=== PATIENT | male | born 1960 | race Caucasian/White ===

== ENCOUNTER 2017-06-11 13:27 | Inpatient (IN) | payer BC ==
[~2017-06-11] VITALS: Ht 172.7 cm; Wt 113.4 kg
[~2017-06-11 13:27] MED LIST: NOHOMEMEDICATIONS; NORCO 7.5-3251 EACH; PEPCID AC20 M1 PO
[2017-06-11 13:33] VITALS: BP 137/69
[2017-06-11] MEDS ORDERED: LISINOPRIL5 MG PO (13:35)
[2017-06-11 13:49] LABS: ABSOLUTE EOSINOPHILS 0.3 thou/uL (0.0-0.7); ABSOLUTE LYMPHOCYTES 2.5 thou/uL (0.8-5.3); ABSOLUTE MONOCYTES 0.8 thou/uL (0.0-1.2); ABSOLUTE NEUTROPHILS 7.9 thou/uL (1.6-8.1); BASOPHILS 0.2 %; EOSINOPHILS 2.8 %; HEMATOCRIT 40.2 % (42.0-52.0); HEMOGLOBIN 13.6 gm/dL (14.0-18.0); LYMPHOCYTES 21.5 %; MCH 29.8 pg (26.0-34.0); MCHC 33.8 g/dL (28.0-37.0); MCV 88.3 fL (80.0-100.0); MONOCYTES 7.1 %; MPV 8.2 fl. (7.2-11.1); NUCLEATED RBCS 0 /100WBC; PLATELET COUNT* 270 thou/uL (150-400); POLYS 68.4 %; RBC 4.56 mil/uL (4.50-6.00); RDW-CV 13.9 % (10.5-14.5); WBC 11.6 thou/uL (4.0-11.0)
[2017-06-11] MEDS ORDERED: TASIGNA200 MG PO (13:50)
[2017-06-11 13:58] LABS: ANION GAP 9 mmol/L (7-16); BUN 12 mg/dL (7-18); CALCIUM 8.9 mg/dL (8.5-10.1); CHLORIDE 103 mmol/L (98-107); CO2 26 mmol/L (21-32); GLUCOSE 100 mg/dL (70-99); POTASSIUM 3.7 mmol/L (3.5-5.1); SODIUM 138 mmol/L (136-145)
[2017-06-11 14:09] LABS: ALKALINE PHOSPHATASE 93 U/L (46-116); LIPASE 977 U/L (73-393); MAGNESIUM 2.1 mg/dL (1.8-2.4); NT-PRO BRAIN NAT PEPTIDE 134 pg/mL (<300); SGOT 18 U/L (15-37); SGPT 43 U/L (30-65); TOTAL BILIRUBIN 0.9 mg/dL (<0.1-1.0); TOTAL PROTEIN 7.5 g/dL (6.4-8.2); TROPONIN-I LEVEL <0.06 ng/mL (<0.06)
[2017-06-11 17:15] VITALS: BP 135/80
[2017-06-11 17:16] VITALS: BP 123/69
[2017-06-11 19:45] VITALS: BP 118/68
[2017-06-12] VITALS (7 sets, daily range): BP systolic 101–141; BP diastolic 45–75
[2017-06-12 09:43] LABS: ANION GAP 12 mmol/L (7-16); BUN 13 mg/dL (7-18); CALCIUM 8.6 mg/dL (8.5-10.1); CHLORIDE 105 mmol/L (98-107); CHOLESTEROL 171 mg/dL (<200); CO2 23 mmol/L (21-32); CREATININE 1.1 mg/dL (0.6-1.3); GLUCOSE 103 mg/dL (70-99); HDL CHOLESTEROL 55 mg/dL (>40); LDL CHOLESTEROL 96 mg/dL (<100); MAGNESIUM 2.5 mg/dL (1.8-2.4); POTASSIUM 4.3 mmol/L (3.5-5.1); SERUM ASSESSMENT Clear; SODIUM 140 mmol/L (136-145); TC:HDL 3.1 Ratio (Not establshd); TRIGLYCERIDE 102 mg/dL (<150); VLDL 20 mg/dL (<40)
--- NOTE | 2017-06-12 10:57 | EKG ---
[place] [address] ELECTROCARDIOGRAM REPORT Name: RAN MURPHY JR Room: [address] ADM IN M.R.#: [id number] Admission: 06/11/17 Attend Phys: Ran White MD Discharge: Date of : 58 Report #: [id number] THIS REPORT FOR: //name// [facility] ED Test Date: 2017-06-11 Test Time: 13:31:54 Pat Name: RAN MURPHY Department: Room: [facility] Gender: M Graves Registration Specialist: MS : 1960 Requested By: Pradeep Forrest Order Number: [id number] MD: Barrington White Measurements Intervals [place] Rate: 94 P: 50 MT: 183 QRS: 11 QRSD: 96 T: 34 QT: 377 QTc: 472 Interpretive Statements Sinus rhythm Probable left atrial enlargement Low voltage, precordial leads Compared to ECG 03/09/2012 05:08:12 no change Electronically Signed On 06-12-2017 10:57:29 NPS by Barrington White [email or web address] <ELECTRONICALLY SIGNED> By: Barrington White MD, [facility] 06/12/17 1057 133 30 Barrington White MD, [facility] /EPI
--- NOTE | 2017-06-12 11:11 | EKG ---
[place] [address] ELECTROCARDIOGRAM REPORT Name: RAN UMRPHY JR Room: [address] ADM IN M.R.#: [id number] Admission: 06/11/17 Attend Phys: Ran White MD Discharge: Date of : 58 Report #: [id number] THIS REPORT FOR: //name// [facility] Test Date: 2017-06-12 Test Time: 10:54:19 Pat Name: RAN MURPHY Department: Room: [facility] Gender: M Gastroenterology Nurse: 26 : 1960 Requested By: Ran White Order Number: [id number] Conor MD: Barrington White Measurements Intervals [place] Rate: 78 P: 26 OK: 173 QRS: 13 QRSD: 91 T: 23 QT: 382 QTc: 436 Interpretive Statements Sinus rhythm Abnormal R-wave progression, early transition Compared to ECG 06/11/2017 13:31:54 No significant changes Electronically Signed On 06-12-2017 11:10:46 [employer] by Barrington White [email or web address] <ELECTRONICALLY SIGNED> By: Barrington White MD, [facility] 06/12/17 1110 1054 1054 Barrington White MD, FACC /EPI
--- NOTE | 2017-06-12 16:15 | 2DMMODE ---
[place] [address] 2 D/M-MODE ECHOCARDIOGRAM Name: RNA MURPHY JR Room: [address] IN [facility]#: [id number] Admission: 06/11/17 Attend Phys: Ran White, Discharge: Date of : 58 Date of Service: 06/12/17 1615 Report #: [id number] THIS REPORT FOR: //name// APPROVED REPORT Study performed: 06/12/2017 10:33:36 EXAM: Comprehensive 2D, Doppler, and color-flow Echocardiogram Patient Location: In-Patient Room #: 220 Status: routine BSA: 2.25 HR: 76 bpm BP: 132/74 mmHg Rhythm: NSR Other Information Study Quality: Good Indications Dyspnea 2D Dimensions IVSd: 9.91 (7-11mm) LVOT Diam: 22.82 (18-24mm) LVDd: 44.32 mm PWd: 11.15 (7-11mm) Ascending Ao: 31.47 (22-36mm) LVDs: 21.19 (25-40mm) Aortic Root: 32.45 mm Volumes Left Atrial Volume (Systole) LA ESV Index: 20.40 mL/m2 Aortic Valve AoV Peak Elfego.: 1.34 m/s AO Peak Gr.: 7.23 mmHg LVOT Max P.28 mmHg AO Mean Gr.: 3.62 mmHg LVOT Mean P.37 mmHg LVOT Max V: 1.15 m/s AO V2 VTI: 28.08 cm LVOT Mean V: 0.70 m/s MASON (VTI): 3.19 cm2 LVOT V1 VTI: 21.86 cm Mitral Valve E/A Ratio: 1.08 MV Decel. Time: 176.12 ms MV E Max Elfego.: 0.98 m/[place] [address] 2 D/M-MODE ECHOCARDIOGRAM Name: RAN MURPHY JR Room: [address] IN ..#: [id number] Admission: 06/11/17 Attend Phys: Ran White, Discharge: Date of : 58 Date of Service: 06/12/17 1615 Report #: [id number] PHT: 51.07 ms MVA (PHT): 4.31 cm2 TDI E/Lateral E': 6.53 E/Medial E': 8.91 Medial E' Elfego.: 0.11 m/s Lateral E' Elfego.: 0.15 m/s Pulmonary Valve PV Peak Elfego.: 1.33 m/s PV Peak Gr.: 7.10 mmHg Tricuspid Valve TR Peak Gr.: 23.07 mmHg RVSP: 28.00 mmHg Left Ventricle The left ventricle is normal size. There is normal LV segmental wall motion. Mild concentric left ventricular hypertrophy. Left ventricular systolic function is normal. The left ventricular ejection fraction is within the normal range. LVEF is 60-65%. The left ventricular diastolic function is normal. Right Ventricle The right ventricle is normal size. The right ventricular systolic function is normal. Atria The left atrium size is normal. The right atrium size is normal. Aortic Valve The aortic valve is normal in structure. No aortic regurgitation is present. There is no aortic valvular stenosis. Mitral Valve The mitral valve is normal in structure. Trace mitral regurgitation. No evidence of mitral valve stenosis. Tricuspid Valve The tricuspid valve is normal in structure. Trace tricuspid regurgitation. The RVSP is ___28____ mmHg. Pulmonic Valve The pulmonary valve is normal in structure. There is no pulmonic valvular regurgitation[place] [address] 2 D/M-MODE ECHOCARDIOGRAM Name: RAN MURPHY JR Room: [address] IN [facility]#: [id number] Admission: 06/11/17 Attend Phys: Ran White, Discharge: Date of : 58 Date of Service: 06/12/17 1615 Report #: [id number] The aortic root is normal in size. IVC is normal in size and collapses with >50% inspiration Pericardium There is no pericardial effusion. <Conclusion> Mild concentric left ventricular hypertrophy. LVEF is 60-65%. <ELECTRONICALLY SIGNED> By: Barrington White MD, FACC 06/12/17 1615 14 14 Barrington White MD, FACC /INF
[2017-06-13 04:23] VITALS: BP 139/77
[2017-06-13 09:30] VITALS: BP 143/79
[2017-06-13 12:00] VITALS: BP 140/77
[2017-06-13 16:12] VITALS: BP 140/77
--- NOTE | 2017-06-13 17:17 | CON ---
[address] [address] CONSULTATION Name: RAN MURPHY JR Room: [address] IN ..#: [id number] Admission: 06/11/17 Attend Phys: Ran White MD Discharge: 06/13/17 Date of : 58 Report #: [id number] THIS REPORT FOR: //name// CC: Carlos Hull DO Ran Ruggiero Adalangie DATE OF SERVICE: 06/12/2017 PRIMARY CARE PHYSICIAN: Dr. Hull. HISTORY OF PRESENT ILLNESS: The patient is a 57-year-old white male who I was asked to see in hospital today after he complained of chest pain. The patient has no previous history of heart disease. He apparently had a stress test years ago. A year ago, he was noted to have an elevated white blood cell count and was diagnosed with CML. He is receiving oral chemotherapy. He was doing well until a couple days ago, was at home, felt a pressure in his epigastric area. Yesterday, he ate breakfast and then went to work. Again, felt an epigastric discomfort. There is no radiation of the pain. He felt somewhat diaphoretic but no shortness of breath, nausea. He denies recent fever, cough, blood in stool. Denied the pain being related to swallowing. He had no trauma to his chest. Denied any rash. The pressure lasted couple of hours. He drove himself to the Emergency Room and was admitted. He does note exertional dyspnea, but no edema. He has had no syncope. He does note occasional episodes where his heart will pound. PAST MEDICAL HISTORY: Significant for appendectomy, prostate surgery, cholecystectomy, tonsillectomy. He has a history of hypertension, no history of diabetes, hyperlipidemia. MEDICATIONS: Include lisinopril. He is on his chemotherapy drug. ALLERGIES: He has an allergy to PENICILLIN. FAMILY HISTORY: Negative for heart disease. SOCIAL HISTORY: He is . He and his live in [place]. 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 He stays active, bowling, no smoking or alcohol abuse. REVIEW OF SYSTEMS: He has a history of sleep apnea, uses CPAP, recently complained of fatigue. He has had no history of stroke, asthma, peptic ulcer disease, liver disease, kidney disease, psychiatric illness. Does wear glasses. PHYSICAL EXAMINATION: GENERAL: Revealed a middle-aged male lying in bed, [place] [address] CONSULTATION Name: RAN MURPHY JR Room: [address]#: [id number] Admission: 06/11/17 Attend Phys: Ran White MD Discharge: 06/13/17 Date of : 58 Report #: [id number] VITAL SIGNS: He had a blood pressure of 130/70, his pulse was 80. He is afebrile. HEENT: He is anicteric. Conjunctivae pink. Mucous members moist. NECK: Veins do not appear distended. CHEST: Clear to auscultation. CARDIOVASCULAR: Regular rate and rhythm. ABDOMEN: Obese, soft, nontender. EXTREMITIES: Had no edema. Dorsalis pedis pulse 2+ bilaterally. SKIN: Warm, dry. NEUROLOGIC: Nonfocal. LYMPH: No adenopathy. MUSCULOSKELETAL: No joint effusions. RADIOLOGICAL DATA: ECG shows a sinus rhythm. There is no significant ST or T-wave change. His x-rays in the emergency room, he had a portable chest x-ray that showed normal heart size and clear lung cevallos. CT scan of the abdomen for the epigastric pain yesterday showed stranding around the pancreas, left inguinal hernia, fatty liver. LABORATORY DATA: Creatinine 1.1, glucose 103. Lipase elevated at 977. Troponins all 0.06. White blood cell count 11.6, hemoglobin 13.6, platelet count 270,000. IMPRESSION AND RECOMMENDATIONS: 1. Epigastric pain. Doubt cardiac. Recommend no cardiac evaluation. Suspect pancreatitis. 2. Hypertension. The patient is on an MAGALY inhibitor. 3. History of chronic myelogenous leukemia. The patient receiving chemotherapy. 4. Sleep apnea. <ELECTRONICALLY SIGNED> By: Barrington White MD, FACC 06/13/17 1717 0959 1850Dajohn White MD, FACC /nt
--- NOTE | 2017-06-14 16:13 | CON ---
[address] [address] CONSULTATION Name: RAN MURPHY JR Room: [address] IN .R.#: [id number] Admission: 06/11/17 Attend Phys: Ran White MD Discharge: 06/13/17 Date of : 58 Report #: [id number] THIS REPORT FOR: //name// CC: Carlos Brandon DICTATED BY: Ambika Tubbs [facility] DATE OF SERVICE: 06/12/2017 PRIMARY CARE PHYSICIAN: Carlos Hull DO Please note at the time of this dictation, the patient was seen and physically examined by myself. REASON FOR CONSULTATION: Abdominal pain. HISTORY OF PRESENT ILLNESS: This is a 57-year-old male presented to the Emergency Room with chief complaint of nonradiating midsternal chest pain that was waxing and waning throughout the night. He described this pain as a pressure. He does points to it there in the epigastric just at the xiphoid process. He states it did make mildly short of breath. He denied any nausea, vomiting or any diaphoresis. He does not take any NSAIDs on a regular basis. He only takes Tylenol as needed. The patient recently was diagnosed with CML and was started on Tasigna which he started on and then his pain started on Monday, which side effect is pancreatitis. He has not had any further of this medicine since Nikita morning. ALLERGIES: PENICILLIN. MEDICATIONS: From home include Tasigna and Zestril, which he has stopped the Tasigna at this time. FAMILY HISTORY: Noncontributory. SOCIAL HISTORY: Denies any alcohol, tobacco or illegal drug use. REVIEW OF SYSTEMS: Twelve-point review of systems is essentially negative except what is mentioned in the HPI. PHYSICAL EXAMINATION: VITAL SIGNS: Temperature 36.6, pulse 84, respirations 18, blood pressure 141/75. HEART: [place] [address] CONSULTATION Name: RAN MURPHY JR Room: [address] IN [facility].#: [id number] Admission: 06/11/17 Attend Phys: Ran White MD Discharge: 06/13/17 Date of : 58 Report #: [id number] LUNGS: Clear. ABDOMEN: Soft, positive bowel sounds in all 4 quadrants with no masses or tenderness noted and unable to reproduce any of the discomfort. LABORATORY DATA: Hemoglobin 13.6, hematocrit 40.2, white count is 11.6, platelets 270. Sodium 140, potassium 4.3, chloride 105, CO2 of 23, BUN is 13, creatinine is 1.1, GFR 69, and glucose is 103. His triglycerides and cholesterol are completely normal and lipase was mildly elevated at 977. CT showed very minimal stranding at the tail of the pancreas and some hepatic steatosis. IMPRESSION: 1. Abdominal pain, epigastric, completely resolved. 2. Pancreatitis noted on CT with mild elevation of lipase, likely related to medication. 3. Chronic myeloid leukemia recently started Tasigna for his chronic myeloid leukemia. PLAN: 1. Increase his fluids to 150 an hour. 2. Clear liquid diet. 3. We will await and assess his response to the above. 4. We will consult his oncologist, Dr. Bahman Shen for further recommendations regarding his medication for his CML. Thank you for allowing us to participate in this patient's care. Please do not hesitate to call with any questions in regard to this consult. I have personally seen and examined the patient and reviewed labs and imaging. The patient with recent diagnosis of CML, who has been placed on Tasigna. His last dose was Monday a.m. The patient had developed nausea and epigastric pain. This was consistent with diagnosis of pancreatitis as he had some stranding in the tail of the pancreas and his lipase was near 1000. He is currently tolerating liquid diet and denies any nausea. He reports that Tylenol controls his pain. Oncology, Dr. Ruggiero had seen him and the plan is to check Tasigna to another chemotherapeutic agent. This will occur as outpatient. We will follow up his lipase tomorrow and it is improved, we will advance his diet to low fat. Meanwhile, we will up his fluids to 150 mL an hour. <ELECTRONICALLY SIGNED> By: Antonio Johnson MD 06/14/17 1613 1152 [id number] Johnson MD /nt
--- NOTE | 2017-06-14 16:13 | CON ---
[address] [address] CONSULTATION Name: RAN MURPHY JR Room: [address] IN M.R.#: [id number] Admission: 06/11/17 Attend Phys: Ran White MD Discharge: 06/13/17 Date of : 58 Report #: [id number] THIS REPORT FOR: //name// CC: Carlos Shen DATE OF SERVICE: 06/12/2017 ADDENDUM Consult # is [id number] I have personally seen and examined the patient and reviewed labs and imaging. The patient with recent diagnosis of CML, who has been placed on Tasigna. His last dose was Monday a.m. The patient had developed nausea and epigastric pain. This was consistent with diagnosis of pancreatitis as he had some stranding in the tail of the pancreas and his lipase was near 1000. He is currently tolerating liquid diet and denies any nausea. He reports that Tylenol controls his pain. Oncology, Dr. Ruggiero had seen him and the plan is to check Tasigna to another chemotherapeutic agent. This will occur as outpatient. We will follow up his lipase tomorrow and it is improved, we will advance his diet to low fat. Meanwhile, we will up his fluids to 150 mL an hour. <ELECTRONICALLY SIGNED> By: Antonio Johnson MD 06/14/17 1613 1717 0609Antonio Johnson MD /alena
--- NOTE | 2017-07-05 12:06 | CON ---
[address] [address] CONSULTATION Name: RAN MURPHY JR Room: [address] IN M.R.#: [id number] Admission: 06/11/17 Attend Phys: Ran White MD Discharge: 06/13/17 Date of : 58 Report #: [id number] THIS REPORT FOR: //name// CC: Carlos Shen DATE OF SERVICE: 06/12/2017 NEW PATIENT CONSULTATIVE SUMMARY REASON FOR CONSULTATION: Possible reaction to CML treatment. HISTORY OF PRESENT ILLNESS: The patient is a pleasant 57-year-old male who has a history of chronic myelogenous leukemia. The patient had an incomplete response recently to imatinib and was recently started on second line treatment with nilotinib. The patient started taking nilotinib approximately one week ago. The patient started having abdominal discomfort after initiation of nilotinib and came to the Emergency Room yesterday at [facility]. The patient had initial evaluation with CBC and CMP. The patient had normal cardiac enzymes including troponin 1. His chemistries were unremarkable. CT scan of the abdomen done for further evaluation showed minimal fat stranding surrounding the pancreatic tail, raising the possibility of early pancreatitis. No lymphadenopathy or hepatosplenomegaly was seen otherwise. The patient's CBC showed borderline elevation of WBC count of 11.6 with differential being normal. The patient's lipase level when checked was 977. The patient was admitted for further evaluation and management. The patient is being managed by liquid diet and IV fluids. The patient did have a bout of diarrhea today. He, otherwise, feels better than yesterday and has less abdominal discomfort. He denies having any headaches, dizziness, nausea, vomiting, constipation, diarrhea, chest pain, palpitations or other significant symptoms at this time. PAST MEDICAL HISTORY: 1. CML. 2. Anxiety. 3. Obesity. 4. Hypertension. 5. Pancreatitis. PAST SURGICAL HISTORY: 1. Appendectomy. 2. T and A. 3. Prostate biopsy. 4. [place] [address] CONSULTATION Name: RAN MURPHY JR Room: [address]#: [id number] Admission: 06/11/17 Attend Phys: Ran White MD Discharge: 06/13/17 Date of : 58 Report #: [id number] FAMILY HISTORY: No significant family history of cancers or other hematologic disorders. PERSONAL HISTORY: No history of smoking or significant alcohol use. ALLERGIES: PENICILLIN. CURRENT MEDICATIONS: 1. Lisinopril 5 mg p.o. daily. 2. Docusate 100 mg p.o. daily. 3. Aspirin 325 mg p.o. at bedtime. 4. Fentanyl 50 mcg q. 2 hours IV push as needed. 5. IV hydration with sodium chloride. 6. K-Phos and K-Dur as needed IV. 7. Zofran 4 mg IV push q. 4 hours as needed. 8. Melatonin 10 mg p.o. at bedtime as needed. 9. Magnesium oxide 400 mg p.o. q.i.d. as needed. 10. Milk of magnesia 10 mL p.o. daily as needed. 11. Diphenhydramine 25 mg p.o. q. 6 hours as needed. 12. Bisacodyl 10 mg p.o. daily as needed. 13. Mylanta 30 mL p.o. q. 4 hours as needed. 14. Tylenol 650 mg p.o. q. 4 hours as needed. REVIEW OF SYSTEMS: A 13-point review of systems were obtained, which were negative for any findings, except for those discussed in the HPI. PHYSICAL EXAMINATION: VITAL SIGNS: Temperature today was 36.7 degrees centigrade, pulse was 79 beats per minute, respiratory rate was 12 breaths per minute and blood pressure was 116/57 mmHg. GENERAL: Awake, alert, oriented x 3, in no apparent distress. HEENT: EOMI/PERRL. LYMPHATICS: No lymphadenopathy in the neck or supraclavicular areas. CHEST: Clear bilaterally, with no added sounds. CARDIOVASCULAR: Regular rate and rhythm, without any murmurs. ABDOMEN: Soft. Bowel sounds positive. MUSCULOSKELETAL: No significant arthropathy, gait not assessed. NEUROLOGIC: No evidence of any focal neurological deficit. INTEGUMENTARY: No evidence of rashes or other skin changes. ASSESSMENT AND PLAN: The patient is a pleasant 57-year-old male with a history of chronic myelogenous leukemia, for which he recently started second-line medication, nilotinib. The patient was admitted with clinical diagnosis of pancreatitis with elevated lipase level and early signs of pancreatitis on CT scan of the abdomen. [address] [address] CONSULTATION Name: RAN MURPHY JR Room: [address] IN M..#: [id number] Admission: 06/11/17 Attend Phys: Ran White MD Discharge: 06/13/17 Date of : 58 Report #: [id number] I will agree with holding his nilotinib at this time as it could have caused pancreatitis as a reaction. I discussed with the patient the option of alternative medicine, named dasatinib, which we can consider after his pancreatitis episode is resolved. I will plan to see the patient back in 1-2 days after discharge from the hospital in our clinic to discuss initiation of dasatinib or bridging him with Gleevec at that time. Plan was discussed with the patient in detail and all of his questions answered to his satisfaction. I would also recommend continuation of his treatment for pancreatitis. Thank you for allowing us to participate in the care of this pleasant patient. <ELECTRONICALLY SIGNED> By: Bahman Shen MD 07/05/17 1206 1556 [id number] Shen MD /nt
== END 2017-06-13 16:50 | disposition home or self-care (01) | DRG 439 ==
LOC: M.ERS 13:27 → M.2W 14:35 → M.TBA-ER 14:35 → M.2W 17:16
PROVIDERS: Emergency Medicine Emergency Medical Services; ADMIT Internal Medicine
DX: K85.30 Drug induced acute pancreatitis without necrosis or infection (principal); C92.10 Chronic myeloid leukemia, BCR/ABL-positive, not having achieved remission; I10 Essential (primary) hypertension; G47.30 Sleep apnea, unspecified; F41.9 Anxiety disorder, unspecified; E66.9 Obesity, unspecified; Z90.49 Acquired absence of other specified parts of digestive tract; Z85.46 Personal history of malignant neoplasm of prostate; Z88.0 Allergy status to penicillin; Z68.38 Body mass index [BMI] 38.0-38.9, adult; T50.995A Adverse effect of other drugs, medicaments and biological substances, initial encounter; Y92.89 Other specified places as the place of occurrence of the external cause

== ENCOUNTER 2017-11-04 18:35 | Emergency (ER) | payer BC ==
[~2017-11-04] VITALS: Ht 172.7 cm; Wt 111.6 kg
[~2017-11-04 18:35] MED LIST changes: +LISINOPRIL5 MG PO; +TASIGNA200 MG PO
[2017-11-04] MEDS ORDERED: SPRYCEL100 MG PO (18:58)
[2017-11-04] MEDS ORDERED: APAP650 PO (18:59)
[2017-11-04] MEDS ORDERED: CYCLOBENZAPRINE5 MG PO (18:59)
[2017-11-04 19:17] LABS: URINE BILIRUBIN NEGATIVE (Negative); URINE BLOOD NEGATIVE (Negative); URINE CLARITY CLEAR; URINE COLOR YELLOW; URINE GLUCOSE-RANDOM NEGATIVE (Negative); URINE KETONES NEGATIVE (Negative); URINE LEUKOCYTES-REFLEX NEGATIVE (Negative); URINE NITRITE-REFLEX NEGATIVE (Negative); URINE PROTEIN NEGATIVE (Negative); URINE UROBILINOGEN 0.2 E.U./dl (0.2-1.0)
[2017-11-04 19:29] LABS: ABSOLUTE EOSINOPHILS 0.5 thou/uL (0.0-0.7); ABSOLUTE LYMPHOCYTES 3.2 thou/uL (0.8-5.3); ABSOLUTE MONOCYTES 0.9 thou/uL (0.0-1.2); BASOPHILS 0.2 %; EOSINOPHILS 4.6 %; HEMATOCRIT 40.4 % (42.0-52.0); HEMOGLOBIN 13.4 gm/dL (14.0-18.0); LYMPHOCYTES 30.4 %; MCH 28.6 pg (26.0-34.0); MCHC 33.2 g/dL (28.0-37.0); MCV 86.2 fL (80.0-100.0); MONOCYTES 8.1 %; MPV 7.8 fl. (7.2-11.1); NUCLEATED RBCS 0 /100WBC; PLATELET COUNT* 320 thou/uL (150-400); POLYS 56.7 %; RBC 4.69 mil/uL (4.50-6.00); RDW-CV 13.8 % (10.5-14.5); WBC 10.7 thou/uL (4.0-11.0)
[2017-11-04 19:33] LABS: POTASSIUM 4.4 mmol/L (3.5-5.1)
[2017-11-04 19:38] LABS: ALBUMIN 3.7 g/dL (3.4-5.0); TOTAL BILIRUBIN 0.3 mg/dL (<0.1-1.0); TOTAL PROTEIN 7.5 g/dL (6.4-8.2)
[2017-11-04] MEDS ORDERED: HYDROCODONE-AP1 EAC6 PO (20:47)
[2017-11-04 20:59] VITALS: BP 113/36
== END 2017-11-04 21:00 | disposition home or self-care (01) ==
LOC: M.ERS 18:35
PROVIDERS: Physician Assistant
DX: M54.5 Low back pain (principal); R10.9 Unspecified abdominal pain; I10 Essential (primary) hypertension; Z88.0 Allergy status to penicillin; Z90.49 Acquired absence of other specified parts of digestive tract

== ENCOUNTER 2018-04-28 00:13 | Inpatient (IN) | payer BC ==
[~2018-04-28] VITALS: Ht 170.2 cm; Wt 102.5 kg
[~2018-04-28 00:13] MED LIST changes: +APAP650 PO; +CYCLOBENZAPRINE5 MG PO; +HYDROCODONE-AP1 EAC6 PO; +SPRYCEL100 MG PO
[2018-04-28 00:18] VITALS: BP 166/64
[2018-04-28] MEDS ORDERED: LEVAQUIN 500 M500 M2 PO (00:24)
[2018-04-28 02:14] LABS: BE -0.6 mmol/L (-2 to +3); HCO3 23.2 mmol/L (22.0-26.0); PO2 92.4 mmHg (75.0-100.0)
[2018-04-28 02:33] LABS: ABSOLUTE BASOPHILS 0.1 thou/uL (0.0-0.2); ABSOLUTE EOSINOPHILS 0.4 thou/uL (0.0-0.7); ABSOLUTE LYMPHOCYTES 2.1 thou/uL (0.8-5.3); ABSOLUTE MONOCYTES 0.9 thou/uL (0.0-1.2); ABSOLUTE NEUTROPHILS 4.3 thou/uL (1.6-8.1); BASOPHILS 0.7 %; EOSINOPHILS 4.9 %; HEMATOCRIT 34.6 % (42.0-52.0); HEMOGLOBIN 11.5 gm/dL (14.0-18.0); LYMPHOCYTES 27.3 %; MCH 28.1 pg (26.0-34.0); MCHC 33.1 g/dL (28.0-37.0); MCV 84.8 fL (80.0-100.0); MONOCYTES 11.5 %; MPV 7.7 fl. (7.2-11.1); NUCLEATED RBCS 0 /100WBC; PLATELET COUNT* 299 thou/uL (150-400); POLYS 55.6 %; RBC 4.08 mil/uL (4.50-6.00); RDW-CV 14.3 % (10.5-14.5); WBC 7.7 thou/uL (4.0-11.0)
[2018-04-28 02:42] LABS: ANION GAP 9 mmol/L (7-16); BUN 13 mg/dL (7-18); CALCIUM 8.6 mg/dL (8.5-10.1); CHLORIDE 101 mmol/L (98-107); CO2 28 mmol/L (21-32); GLUCOSE 107 mg/dL (70-99); SODIUM 138 mmol/L (136-145)
[2018-04-28 02:52] LABS: ALBUMIN 3.2 g/dL (3.4-5.0); ALKALINE PHOSPHATASE 142 U/L (46-116); NT-PRO BRAIN NAT PEPTIDE 250 pg/mL (<300); SGOT 40 U/L (15-37); SGPT 129 U/L (30-65); TOTAL BILIRUBIN 0.3 mg/dL (<0.1-1.0); TOTAL PROTEIN 7.9 g/dL (6.4-8.2); TROPONIN-I LEVEL <0.06 ng/mL (<0.06)
[2018-04-28 04:29] VITALS: BP 146/78
[2018-04-28 08:10] VITALS: BP 146/83
--- NOTE | 2018-04-28 08:30 | NUR ---
Pt to floor from ER, appears alert o x 4, denies chest paiun, does c/O some SOB, o2 sats 96% on RA, RT here for aerosol TX
[2018-04-28 10:35] VITALS: BP 146/83
[2018-04-28 11:45] VITALS: BP 146/66
[2018-04-28 16:00] VITALS: BP 154/84
--- NOTE | 2018-04-28 17:44 | NUR ---
PT PROGRESSING TOWARDS GOALS, REMAINS ALERT O X 4, DENIES CHEST PAIN, DENIES SOB AT REST, ON IVF,. O2 SATS MID 90S ON RA, NSR ON MONITOR, BRP, IFF, IV ABX, SOULMEDROL Q 6 HOURS, AEROSOL TX
[2018-04-29] VITALS: BP 96/60
[2018-04-29 04:30] VITALS: BP 109/61
--- NOTE | 2018-04-29 05:08 | NUR ---
ASSUMED CARE OF PT AT 1900 PT ALERT AND ORIENTED X4 VS AND ASSESMENT AT PTS BASELINE. PT NSR ON THE MONITOR. PT DENIED ANY COMPLAINTS AND SLEPT THROUGH THE NIGHT. WILL CONTINUE PLAN OF CARE.
[2018-04-29 07:45] VITALS: BP 158/80
[2018-04-29 12:43] VITALS: BP 126/74
[2018-04-29 16:58] VITALS: BP 134/67
--- NOTE | 2018-04-29 17:22 | NUR ---
PT UP IN ROOM WITH STEADY GAIT. AMBULATING HALLS. REPORTS SOA BUT SATS IN UPPER 90S. NO COUGH. NSR ON MONITOR
[2018-04-29 20:00] VITALS: BP 148/47
[2018-04-30] VITALS: BP 135/76
[2018-04-30 04:00] VITALS: BP 150/75
[2018-04-30 04:53] LABS: ABSOLUTE LYMPHOCYTES 1.2 thou/uL (0.8-5.3); ABSOLUTE MONOCYTES 0.5 thou/uL (0.0-1.2); ABSOLUTE NEUTROPHILS 8.4 thou/uL (1.6-8.1); HEMATOCRIT 33.6 % (42.0-52.0); HEMOGLOBIN 11.2 gm/dL (14.0-18.0); LYMPHOCYTES 12.3 %; MCH 28.2 pg (26.0-34.0); MCHC 33.3 g/dL (28.0-37.0); MCV 84.8 fL (80.0-100.0); MONOCYTES 4.9 %; MPV 7.9 fl. (7.2-11.1); NUCLEATED RBCS 0 /100WBC; PLATELET COUNT* 358 thou/uL (150-400); POLYS 82.8 %; RBC 3.96 mil/uL (4.50-6.00); RDW-CV 14.1 % (10.5-14.5); WBC 10.1 thou/uL (4.0-11.0)
[2018-04-30 05:07] LABS: CALCIUM 8.4 mg/dL (8.5-10.1); CREATININE 1.1 mg/dL (0.6-1.3); POTASSIUM 4.6 mmol/L (3.5-5.1)
--- NOTE | 2018-04-30 06:26 | NUR ---
ASSUMED CARE OF PT AT 1900 PT ALERT AND ORIENTED X4 VS AND ASSESSMENT STABLE. PT VOINCED NO COMPLAINTS AND SLEPT THROUGH THE NIGHT. WILL CONTINUE MPLAN OF CARE.
[2018-04-30 08:00] VITALS: BP 134/73
--- NOTE | 2018-04-30 11:12 | EKG ---
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
--- NOTE | 2018-04-30 11:20 | NUR ---
ASSUMED CARE OF PT AT 0730. PT RESTING IN BED WAITING FOR BREAKFAST. PT A&0X4, DENIES ANY PAIN OR SHORTNESS OF BREATH AT THIS TIME. PT TRACING SR ON THE RELIGIOUS HEALER. ON RA SAT UPPER 90'S. PT HAS NON PRODUCTIVE COUGH. PT UP AD YANETH IN ROOM. PT GOAL FOR TODAY IS TO INCREASE ACTIVITY, BE SEEN BY PULMONARY AND IV ABX AND STEROIDS. AM ASSESSMENT CHARTED. MEDICATIONS PER MAR. PT REPOSITIONS SELF. HOURLY ROUNDING OBSERVED. BED IN LOW POSITION. CALL LIGHT WITHIN REACH. WILL CONTINUE PLAN OF CARE.
[2018-04-30 12:30] VITALS: BP 132/46; BP 146/69
--- NOTE | 2018-04-30 15:35 | NUR ---
Pt is A&O. Resides at home with his . Normally independent. No DME. No hx of HH or SNF. Goal is home at hi. Following.
[2018-04-30 16:47] VITALS: BP 159/88
--- NOTE | 2018-04-30 17:01 | NUR ---
NO ACUTE CHANGES THROUGHOUT SHIFT. REFER TO CHARTING. PT SEEN BY PULMONARY TODAY. PT STATES HE IS STARTING TO FEEL A LITTLE BETTER TODAY. PT SAT UP IN THE CHAIR THROUGHOUT THE DAY. TOLERATED WELL. PT AT BEDSIDE THIS AFTERNOON AND UPDATED ON CURRENT PLAN OF CARE. PT PROGRESSING TOWARDS GOALS. MEDICATIONS PER MAR. PT REPOSITIONS SELF. HOURLY ROUNDING OBSERVED. BED IN LOW POSITION. CALL LIGHT WITHIN REACH. WILL CONTINUE PLAN OF CARE.
[2018-04-30 20:09] VITALS: BP 142/78
[2018-05-01] VITALS: BP 143/68
[2018-05-01 04:21] VITALS: BP 133/66
--- NOTE | 2018-05-01 05:47 | NUR ---
PT IS ABLE TO COMMUNICATE HIS NEEDS TO STAFF EFFECTIVELY. HE HAS DENIED THE NEED FOR PAIN MEDICATION UP TO THIS TIME. POSSIBLE DISCHARGE SOON.
[2018-05-01 08:00] VITALS: BP 137/75
--- NOTE | 2018-05-01 08:00 | CON ---
[address] [address] CONSULTATION Name: RAN MURPHY JR Room: [address] ADM IN M.R.#: [id number] Admission: 04/29/18 Attend Phys: Judie Polanco Discharge: Date of : 58 Report #: [id number] THIS REPORT FOR: //name// CC: Carlos Siegel DO DATE OF SERVICE: 04/30/2018 PULMONARY CONSULTATION LOCATION: Room 207. ATTENDING PHYSICIAN: Maksim Siegel DO INDICATION FOR CONSULTATION: Dyspnea and cough. CLINICAL SUMMARY: The patient 58-year-old male, lifelong nonsmoker with a cough for the past 5 to 7 days. It was worse when he was lying down. He denied to me that he was having trouble clearing his secretions. They told other physicians he was having trouble clearing secretions. Mostly was thin clear sputum. He was short of breath and could not walk across the room. He was taking dasatinib one of the newer biologic agent, monoclonal antibodies for chronic myelogenous leukemia, which he has had for about the last 6-12 months. The brand name is called Sprycel. That has been on hold for a couple of days. They thought he may have had some epiglottitis and had some upper respiratory type symptoms, but lateral views of the neck showed some mild epiglottis swelling, but his airway is good and clear at this time. He has not had ENT evaluation and Pulmonary was just seen him today. He can talk to me in full sentences. He states he is less short of breath at this time. Denies any history of COPD, asthma. No history of fever, chills, sweats or aspiration. Of note, he has been on Levaquin since he has been in the hospital, but not before he was in the hospital. ABGs were stable on room air upon admit. ALLERGIES: HE HAS INTOLERANCE TO PENICILLINS. PAST MEDICAL HISTORY: Other past medical history includes CML for the last year or so and he has had obesity and also mild hypertension. The patient is a never smoker. MEDICATIONS: It should also be noted the patient was on lisinopril 5 mg daily in spite other than Levaquin. He is not currently on lisinopril. He is on IV Solu-Medrol at 62.5 q. 8 as well as IV levofloxacin at 750 mg daily and some DuoNeb treatments. [place] [address] CONSULTATION Name: RAN MURPHY JR Room: [address] IN [facility]#: [id number] Admission: 04/29/18 Attend Phys: Judie Polanco Discharge: Date of : 58 Report #: [id number] FAMILY HISTORY: Negative for premature cardiopulmonary disease. PAST SURGICAL HISTORY: He had previous prostate CA, which was localized. He has had prostatectomy. No evidence of disease. He has had an appendectomy, tonsillectomy and adenoidectomy and previous cholecystectomy. SOCIAL HISTORY: Again, he is a never smoker. No history of alcohol use or illicit drug use. REVIEW OF SYSTEMS: A 14-point review of systems per the patient was reviewed and negative except for pertinent positives noted in HPI. PHYSICAL EXAMINATION: GENERAL: A 58-year-old male in no acute distress at least at this time and talk to me in full sentences. He can control his secretions. He does not have a slurred voice, etc. VITAL SIGNS: Currently his blood pressure is 132/46, heart rate 84, respirations 16, temperature is 36.9 degrees. He is 5 feet 10 inches tall, weight is ____ BMI is 41. HEENT: Unremarkable. Pharynx is clear. His tongue is not enlarged. He has about a Mallampati score of 3. I really cannot see the soft palate and see his epiglottis at this time. NECK: Supple, without nodes. No neck swelling or irritation noted. CHEST: Shows mildly prolonged expiratory phase with few rhonchi, but no upper airway stridor or inspiratory stridor noted. CARDIOVASCULAR: Regular rate and rhythm without murmur, gallop or rub. Heart rate is in the 80s. No S3 is noted. ABDOMEN: Soft, obese without masses or megaly. EXTREMITIES: No calf tenderness. No cyanosis, clubbing or edema. NEUROLOGIC: Grossly intact. LABORATORY DATA: From today hemoglobin is 11, white count is 10,100 with surprisingly normal differential, there is 82% neutrophils and 12% lymphs, absolute neutrophil count is 8400. Previously yesterday, there was an increase in eosinophilia at 4.9%, but the absolute eosinophil count was only 400. Platelets are normal at 358, MCV is 85. Sodium is 136 today, potassium is 4.6, carbon dioxide is 24, BUN is 20 with a creatinine of 1.1 and GFR of 69, calcium is 8.4, glucose is 225. LFTs slightly elevated ALT is 129 and alkaline phosphatase is 142. Blood gas on room air again on 04/28/2018 showed a pO2 of 92, pH 7.43, pCO2 is normal at 35, bicarbonate is 23, sat was 93%. Chest x-ray was within normal limits. Again, on the lateral neck view, may have been some mild swelling of the epiglottis that is not very clear though. No CTs of the neck or chest were obtained. IMPRESSION: [facility] [address] [place] [address] CONSULTATION Name: RAN MURPHY Room: [address] IN M.R.#: [id number] Admission: 04/29/18 Attend Phys: Judie Polanco Discharge: Date of : 58 Report #: [id number] 1. Dyspnea, multifactorial, etiology unclear. 2. Chronic myelogenous leukemia, previously on Sprycel or dasatinib and monoclonal antibody. 3. Possible upper airway swelling could be related to the lisinopril. PLAN: The patient is clinically improved on nebulizer treatments, steroids and antibiotics. We will continue him on this. May need ENT evaluation if he continue to has any problems or possibly a noncontrast CT of the neck and the chest to further define the anatomy. He can swallow at this time, so see what he does after swallow study, make sure he is stable. Further workup for his dyspnea would include an echocardiogram and then full PFTs as an outpatient, possibly even a sleep study, although he states he has never had sleep apnea in the past. We will taper down his steroids in a day or two and then see where we progress from there, but he clinically appears to be improving at this time. No reason for fiberoptic bronchoscopy at least at this time. <ELECTRONICALLY SIGNED> By: Sandeep Mcclelland MD 05/01/18 0800 [id number] zabrina Delgado
--- NOTE | 2018-05-01 11:25 | NUR ---
ASSUMED CARE OF PT AT 0730. PT RESTING IN BED WAITING FOR BREAKFAST. PT A&0X4, DENIES ANY PAIN OR SHORTNESS OF BREATH AT THIS TIME. PT STATES HE IS FEELING A LITTLE BETTER TODAY. PT TRACING SR ON THE CLAIM EXAMINER. ON RA SAT UPPER 90'S. PT UP AD YANETH IN ROOM. PT RECEIVING IV STEROIDS AND IV ANTIBIOTICS. PULMONARY HERE TO SEE PT. NO NEW ORDERS RECEIVED AT THIS TIME. WILL CONTINUE TO MONITOR FOR NEXT DAY OR 2 PER PULM. PT GOAL FOR TODAY IS TO REMAIN FREE FROM SHORTNESS OF BREATH, INCREASE ACTIVITY AND BREATHING TREATMENTS. AM ASSESSMENT CHARTED. MEDICATIONS PER JUL. PT REPOSITIONS SELF. HOURLY ROUNDING OBSERVED. BED IN LOW POSITION. CALL LIGHT WITHIN REACH. WILL CONTINUE PLAN OF CARE.
[2018-05-01 12:00] VITALS: BP 147/69
[2018-05-01 15:30] VITALS: BP 140/80
--- NOTE | 2018-05-01 16:53 | 2DMMODE ---
[place] [address] 2 D/M-MODE ECHOCARDIOGRAM Name: RAN MURPHY JR Room: [address] IN [facility]#: [id number] Admission: 04/29/18 Attend Phys: Maksim Siegel Discharge: Date of : 58 Date of Service: 05/01/18 1653 Report #: [id number] THIS REPORT FOR: //name// APPROVED REPORT Study performed: 05/01/2018 14:22:33 EXAM: Comprehensive 2D, Doppler, and color-flow Echocardiogram Patient Location: In-Patient Room #: [facility] Status: routine BSA: 2.27 HR: 75 bpm BP: 147/69 mmHg Rhythm: NSR Other Information Study Quality: Good Indications Dyspnea 2D Dimensions IVSd: 12.76 (7-11mm) LVOT Diam: 21.11 (18-24mm) LVDd: 48.92 mm PWd: 10.82 (7-11mm) Ascending Ao: 31.09 (22-36mm) LVDs: 24.02 (25-40mm) Aortic Root: 28.09 mm Volumes Left Atrial Volume (Systole) LA ESV Index: 17.20 mL/m2 Aortic Valve AoV Peak Elfego.: 1.26 m/s AO Peak Gr.: 6.39 mmHg LVOT Max P.08 mmHg AO Mean Gr.: 3.45 mmHg LVOT Mean P.37 mmHg LVOT Max V: 1.13 m/s AO V2 VTI: 24.47 cm LVOT Mean V: 0.70 m/s MASON (VTI): 3.39 cm2 LVOT V1 VTI: 23.67 cm Mitral Valve E/A Ratio: 1.38 MV Decel. Time: 206.84 ms MV E Max Elfego.: 1.43 m/[place] [address] 2 D/M-MODE ECHOCARDIOGRAM Name: RAN MURPHY JR Room: [address] IN .R.#: [id number] Admission: 04/29/18 Attend Phys: Maksim Siegel Discharge: Date of : 58 Date of Service: 05/01/18 1653 Report #: [id number] MV PHT: 59.98 ms MVA (PHT): 3.67 cm2 TDI E/Lateral E': 11.92 E/Medial E': 11.92 Medial E' Elfego.: 0.12 m/s Lateral E' Elfego.: 0.12 m/s Pulmonary Valve PV Peak Elfego.: 1.17 m/s PV Peak Gr.: 5.51 mmHg Tricuspid Valve RAP Estimate: 5.00 mmHg TR Peak Gr.: 36.36 mmHg RVSP: 41.00 mmHg PA Pressure: 41.00 mmHg Left Ventricle The left ventricle is normal size. There is normal LV segmental wall motion. There is normal left ventricular wall thickness. Left ventricular systolic function is normal. The left ventricular ejection fraction is within the normal range. LVEF is 55-60%. The left ventricular diastolic function is normal. Right Ventricle The right ventricle is normal size. The right ventricular systolic function is normal. Atria The left atrium size is normal. The right atrium size is normal. Aortic Valve The aortic valve is normal in structure. No aortic regurgitation is present. There is no aortic valvular stenosis. Mitral Valve The mitral valve is normal in structure. Mild mitral regurgitation. No evidence of mitral valve stenosis. Tricuspid Valve The tricuspid valve is normal in structure. Mild tricuspid regurgitation. Pulmonic Valve The pulmonary valve is normal in structure. There is no pulmonic [place] [address] 2 D/M-MODE ECHOCARDIOGRAM Name: RAN MURPHY JR Room: [address] IN [facility]#: [id number] Admission: 04/29/18 Attend Phys: Maksim Siegel Discharge: Date of : 58 Date of Service: 05/01/18 1653 Report #: [id number] Great Vessels The aortic root is normal in size. IVC is normal in size and collapses >50% with inspiration. Pericardium There is no pericardial effusion. <Conclusion> The left ventricle is normal size. There is normal left ventricular wall thickness. Left ventricular systolic function is normal. The left ventricular ejection fraction is within the normal range. LVEF is 55-60%. The left ventricular diastolic function is normal. The right ventricle is normal size. The left atrium size is normal. The aortic valve is normal in structure. The mitral valve is normal in structure. Mild mitral regurgitation. The tricuspid valve is normal in structure. IVC is normal in size and collapses >50% with inspiration. There is no pericardial effusion. There is normal LV segmental wall motion. <ELECTRONICALLY SIGNED> By: Christopher Fermin MD, FACC 05/01/181652 52 52 Christopher Fermin MD, FACC /INF
--- NOTE | 2018-05-01 17:43 | NUR ---
NO ACUTE CHANGES THROUGHOUT SHIFT. REFER TO CHARTING. PT UP TO CHAIR FOR MEALS, RECEIVING BREATHING TREATMENTS, IV STEROIDS AND IV ABX. PER PULM, PT TO BE MONITORED UNTIL , 05/03. PT STATES HE IS STARTING TO FEEL BETTER EACH DAY. PT DENIES ANY PAIN OR SHORTNESS OF BREATH THROUGHOUT SHIFT, ORDERS RECEIVED FROM PULM FOR CM TO SET UP HOME NEBULIZER FOR DUONEB QID AND RT SAT AND EXERCISE. PT CONTINUES TO TRACE SR ON THE COMMUNICATIONS WRITER. ON RA SAT UPPER 90'S, LUNGS DIMINISED. PT UP AD YANETH IN ROOM. BNP ORDERED PER DR PARRISH- RESULTS 1423. PT PROGRESSING TOWARDS GOALS. MEDICATIONS PER JUL. PT REPOSITIONS SELF. HOURLY ROUNDING OBSERVED. BED IN LOW POSITION. CALL LIGHT WITHIN REACH. WILL CONTINUE PLAN OF CARE.
[2018-05-01 20:00] VITALS: BP 153/73
[2018-05-02] VITALS: BP 139/77
[2018-05-02 04:00] VITALS: BP 140/69; BP 151/88
--- NOTE | 2018-05-02 05:34 | NUR ---
VITALS WNL. SEE MAR. SEE CHARTING. HOURLY ROUNDING FOR SAFETY.
[2018-05-02 08:02] VITALS: BP 141/73
--- NOTE | 2018-05-02 09:14 | NUR ---
ASSUMED CARE OF PT THIS AM AROUND 0715- CEO [place] IN PLACE ORDERED, TRACING SR- UPON ASSESSMENT PT NOTED TO BE RESTING IN BED, PT STATES TO NOT HAVE SLEPT WELL LAST NIGHT R/T COUGHING- PT A&O X4- CONTINENT OF BOWEL AND BLADDER- UP AD-YANETH IN ROOM, STEADY GAIT NOTED- DIMINISHED LUNG SOUNDS NOTED-REPORTED NON-PRODUCTIVE COUGH- VSS, O2 SAT 99% ON RA- ABDOMEN ROUND/DISTENDED/NON-TENDER, BS X4 QUADS- LAST BM REPORTED THIS AM- IV NOTED TO RIGHT HAND INTACT AND SL- IV ABT GIVEN THIS AM PRESCRIBED- GOOD PO INTAKE NOTED THIS AM WITH BREAKFAST- DENIES ANY C/O PAIN/DISCOMFORT AT THIS TIME- CALL LIGHT AND PERSONAL BELONGINGS WITH IN REACH- HOURLY ROUNDS IN PLACE R/T SAFETY/NEEDS- ALL NEEDS MET AT THIS TIME-WCTM
[2018-05-02 11:30] VITALS: BP 153/88
[2018-05-02 16:00] VITALS: BP 154/80
--- NOTE | 2018-05-02 16:33 | NUR ---
PT CURRENTLY RESTING IN BED- LITERATURE PROFESSOR IN PLACE ORDERED, TRACING SR- IV TO RIGHT HAND INTACT AND SL- PULMONARY NOTED TO SIGN OFF THIS SHIFT- SOLU-MED TO CHANGE TO PO IN AM- D-DIMER DRAWN THIS AM AND NOTED TO BE 0.47- PT DENIES ANY C/O PAIN/DISCOMFORT AT THIS TIME- CALL LIGHT AND PERSONAL BELONGINGS WITH IN REACH- HOURLY ROUNDS IN PLACE R/T SAFETY/NEEDS- ALL NEEDS MET AT THIS TIME-WCTM
[2018-05-02 19:50] VITALS: BP 153/77
[2018-05-03] VITALS: BP 158/71
[2018-05-03 04:00] VITALS: BP 170/89
--- NOTE | 2018-05-03 06:36 | NUR ---
VITALS WNL. SEE MAR. SEE CHARTING. HOURLY ROUNDING FOR SAFETY.
[2018-05-03 07:51] VITALS: BP 164/92
--- NOTE | 2018-05-03 09:08 | NUR ---
ASSUMED CARE OF PT THIS AM AROUND 0715- COLOR GRINDER IN PLACE ORDERED, TRACING SR- UPON ASSESSMENT PT NOTED TO BE RESTING IN BED, WATCHING TV- PT A&O X4- CONTINENT OF BOWEL AND BLADDER- UP AD-YANETH IN ROOM, STEADY GAIT NOTED- LCTA, RESP EVEN AND UN-LABORED- VSS, O2 SAT 99% ON RA-OCCASSIONAL DRY COUGH NOTED- PT REPORTS TO BE FEELING MUCH BETTER THIS AM AND FEELS READY TO GO HOME- IV NOTED TO RIGHT HAND INTACT AND SL- IV ABT GIVEN THIS AM PRESCRIBED- ABDOMEN SOFT/ROUND/NON-TENDER, BS X4 QUADS- PT REPORTS TO HAVE HAD BM THIS AM- GOOD PO INTAKE NOTED THIS AM WITH BREAKFAST- DENIES ANY C/O PAIN/DISCOMFORT AT THIS TIME- CALL LIGHT AND PERSONAL BELONGINGS WITH IN REACH- PT MAKES NEEDS KNOWN- ALL NEEDS MET AT THIS TIME-WCTM
[2018-05-03 09:34] VITALS: BP 164/92
[2018-05-03] MEDS ORDERED: [UNRECOGNIZED DRUG - OTHER] PO (11:06)
[2018-05-03] MEDS ORDERED: PREDNISONE 10 M10 MG PO (11:06)
[2018-05-03] MEDS ORDERED: LEVAQUIN 500 M500 M2 PO (11:06)
[2018-05-03] MEDS ORDERED: SINGULAIR 10 MG10 M1 PO (11:06)
[2018-05-03] MEDS ORDERED: ALBUTEROL2.5 MG/0.5 INH (11:09)
[2018-05-03 11:54] VITALS: BP 153/78
--- NOTE | 2018-05-03 12:07 | NUR ---
ORDERS RECIEVIED THIS SHIFT FOR OKAY TO D/C TO HOME THIS SHIFT PER IF OKAY WITH PULMONARY- PULMONARY NOTED TO SIGN OFF ON 05/02/18 AND OKAY WITH D/C AT THAT TIME WELL- IV TO RIGHT HAND ALONG WITH REWRITER D/C'D PRIOR TO D/C- D/C TEACHING/EDUCATION GIVEN TO PT PRIOR TO D/C WITH ALL QUESTIONS AND CONCERNS ADDRESSED PRIOR TO D/C- WRITTEN EDUCATION ALONG WITH SCRIPTS PROVIDED TO PT PRIOR TO D/C- BELONGINGS PACKED AND ACCOUNTED FOR PER PT- PT CURRENLTY DRESSED UP IN BED SIDE CHAIR AWAITING RIDE FOR D/C- ALL NEEDS MET AT THIS TIME-WCTM
--- NOTE | 2018-05-03 12:12 | CON ---
[address] [address] CONSULTATION Name: RAN MURPHY JR Room: [address] IN M.R.#: [id number] Admission: 04/29/18 Attend Phys: Judie Polanco Discharge: Date of : 58 Report #: [id number] THIS REPORT FOR: //name// CC: Carlos Siegel DATE OF SERVICE: 05/02/2018 PRIMARY ONCOLOGIST: Dr. Bahman Shen. REASON FOR CONSULTATION: CML. SUBJECTIVE: A 58-year-old male who has been previously diagnosed with a chronic phase of CML. His current treatment is dasatinib, which has been switched from previous imatinib and nilotinib, most recently with dasatinib since 06/2017. He achieved complete molecular response. His counts have been stable. The patient was admitted on 04/28/2018 because of progressive shortness of breath; however, he had a productive cough 6 days prior to that. Chest x-ray did not show any active pneumonia. He was being prescribed for Levaquin. By the time of evaluation today, the patient has been feeling gradually better. He still has mild shortness of breath. He had an echo, which showed no evidence of decreased LV function or pulmonary hypertension. REVIEW OF SYSTEMS: All systems were reviewed. It was negative except the above. PAST MEDICAL HISTORY: CML, hypertension, obesity. MEDICATIONS: Per admission list. ALLERGIES: PENICILLIN. SOCIAL HISTORY: No smoking, no alcohol abuse, no drug abuse. FAMILY HISTORY: Noncontributory. PHYSICAL EXAMINATION: VITAL SIGNS: Today, temperature is 36.4, pulse 69, respirations 17, blood pressure is 153/88, SpO2 was 96% on room air. GENERAL: The patient was sitting in a chair who is not in acute distress. LUNGS: Clear to auscultations bilaterally. HEART: Regular rate and rhythm. S1, S2 within normal limits. ABDOMEN: Soft, nontender, nondistended, bowel sounds positive. EXTREMITIES: No edema, no cyanosis, no clubbing. LABORATORY DATA: Today, WBC 10.1, hemoglobin 11.2, platelets [place] [address] CONSULTATION Name: RAN MURPHY JR Room: [address] IN [facility]#: [id number] Admission: 04/29/18 Attend Phys: Judie Polanco Discharge: Date of : 58 Report #: [id number] is 1.1. was 1423. A chest x-ray showed no evidence of pneumonia. Soft tissue x-ray of the cervical showed mild narrowing on the upper trachea. This represents a mild croup. ASSESSMENT AND PLAN: A 58-year-old male who has been diagnosed with chronic myeloid leukemia achieved major molecular response by tyrosine kinase inhibitor dasatinib. His WBC has been within normal range. In terms of his active symptoms at this point, most likely this is related to infectious process or laryngeal spasm per Pulmonary evaluation. I reviewed his 2D echo, which showed no evidence of cardiomyopathy or increased pulmonary hypertension, which is a rare side effect of dasatinib. At this point, I advised the patient to hold dasatinib while he is in the hospital and resume once he fully recover. We will arrange followup with Dr. Shen as an outpatient within 2 weeks. <ELECTRONICALLY SIGNED> By: Shiela Barajas MD 05/03/18 1212 1233 [id number] Barajas MD /nt
--- NOTE | 2018-05-03 15:23 | NUR ---
Following for d/c planning needs. Pt to d/c home with nebulizer. Contacted [facility] with [facility] and faxed referral. Asked technical planner to fax order. [facility] delivered nebulizer to pt at home. No other needs identified.
== END 2018-05-03 12:20 | disposition home or self-care (01) | DRG 202 ==
LOC: M.ERS 00:13 → M.2W 03:02 → M.TBA-ER 03:02 → M.2W 08:07
PROVIDERS: Personal Emergency Response Attendant; ADMIT Internal Medicine
DX: J40 Bronchitis, not specified as acute or chronic (principal); C92.10 Chronic myeloid leukemia, BCR/ABL-positive, not having achieved remission; R06.03 Acute respiratory distress; I10 Essential (primary) hypertension; E66.9 Obesity, unspecified; J38.5 Laryngeal spasm; Z90.49 Acquired absence of other specified parts of digestive tract; Z85.46 Personal history of malignant neoplasm of prostate; Z68.35 Body mass index [BMI] 35.0-35.9, adult; Z88.0 Allergy status to penicillin

== ENCOUNTER 2020-04-18 09:09 | Inpatient (IN) | payer BC ==
[~2020-04-18] VITALS: Ht 172.7 cm; Wt 112.0 kg
[~2020-04-18 09:09] MED LIST changes: +ALBUTEROL2.5 MG/0.5 INH; +LEVAQUIN 500 M500 M2 PO; +PREDNISONE 10 M10 MG PO; +SINGULAIR 10 MG10 M1 PO; +[UNRECOGNIZED DRUG - OTHER] PO
[2020-04-18 09:16] VITALS: BP 151/74
[2020-04-18] MEDS ORDERED: SPRYCEL100 MG PO (09:18)
[2020-04-18 09:53] LABS: ABSOLUTE BASOPHILS 0.1 thou/uL (0.0-0.2); ABSOLUTE EOSINOPHILS 0.2 thou/uL (0.0-0.7); ABSOLUTE LYMPHOCYTES 2.1 thou/uL (0.8-5.3); ABSOLUTE MONOCYTES 0.8 thou/uL (0.0-1.2); ABSOLUTE NEUTROPHILS 7.4 thou/uL (1.6-8.1); BASOPHILS 1.2 %; EOSINOPHILS 1.5 %; HEMATOCRIT 39.7 % (42.0-52.0); HEMOGLOBIN 13.2 gm/dL (14.0-18.0); LYMPHOCYTES 19.9 %; MCH 27.4 pg (26.0-34.0); MCHC 33.2 g/dL (28.0-37.0); MCV 82.4 fL (80.0-100.0); MONOCYTES 7.3 %; MPV 7.7 fl. (7.2-11.1); NUCLEATED RBCS 0 /100WBC; PLATELET COUNT* 334 thou/uL (150-400); POLYS 70.1 %; RBC 4.82 mil/uL (4.50-6.00); RDW-CV 14.2 % (10.5-14.5); WBC 10.5 thou/uL (4.0-11.0)
[2020-04-18 10:03] LABS: CALCIUM 9.2 mg/dL (8.5-10.1); POTASSIUM 4.2 mmol/L (3.5-5.1)
[2020-04-18 10:13] LABS: ALBUMIN 3.3 g/dL (3.4-5.0); MAGNESIUM 2.2 mg/dL (1.8-2.4); TOTAL BILIRUBIN 0.6 mg/dL (<0.1-1.0); TOTAL PROTEIN 7.3 g/dL (6.4-8.2)
[2020-04-18 15:32] VITALS: BP 112/62
[2020-04-18 15:35] VITALS: BP 132/74
[2020-04-18 20:00] VITALS: BP 123/71
[2020-04-19] VITALS: BP 131/77
[2020-04-19 04:00] VITALS: BP 142/91
[2020-04-19 05:04] LABS: HEMATOCRIT 40.9 % (42.0-52.0); HEMOGLOBIN 13.5 gm/dL (14.0-18.0); MCH 27.3 pg (26.0-34.0); MCV 82.9 fL (80.0-100.0); MPV 8.1 fl. (7.2-11.1); RBC 4.93 mil/uL (4.50-6.00); RDW-CV 14.7 % (10.5-14.5)
[2020-04-19 05:28] LABS: ALBUMIN 3.4 g/dL (3.4-5.0); ALKALINE PHOSPHATASE 94 U/L (46-116); ANION GAP 10 mmol/L (7-16); BUN 15 mg/dL (7-18); CALCIUM 9.3 mg/dL (8.5-10.1); CHLORIDE 98 mmol/L (98-107); CHOLESTEROL 219 mg/dL (<200); CO2 27 mmol/L (21-32); GLUCOSE 128 mg/dL (70-99); HDL CHOLESTEROL 49 mg/dL (>40); LDL CHOLESTEROL 152 mg/dL (<100); MAGNESIUM 2.2 mg/dL (1.8-2.4); POTASSIUM 4.5 mmol/L (3.5-5.1); SGOT 22 U/L (15-37); SGPT 37 U/L (30-65); SODIUM 135 mmol/L (136-145); TC:HDL 4.5 Ratio (Not establshd); TOTAL BILIRUBIN 0.5 mg/dL (<0.1-1.0); TOTAL PROTEIN 7.5 g/dL (6.4-8.2); TRIGLYCERIDE 92 mg/dL (<150); VLDL 18 mg/dL (<40)
[2020-04-19 05:32] LABS: SERUM ASSESSMENT Clear
[2020-04-19 08:00] VITALS: BP 142/84
[2020-04-19 11:47] LABS: INFLUENZA A ANTIGEN Negative (Negative); INFLUENZA B ANTIGEN Negative (Negative)
--- NOTE | 2020-04-19 12:44 | EKG ---
[place] [address] ELECTROCARDIOGRAM REPORT Name: RAN MURPHY JR Room: [address] ADM IN ..#: [id number] Admission: 04/18/20 Attend Phys: Ellen Todd, Discharge: Date of : 58 Date of Service: 04/18/2014 Report #: [id number] THIS REPORT FOR: //name// [facility] ED Test Date: 2020-04-18 Test Time: 09:14:04 Pat Name: RAN MURPHY Department: Room: [facility] Gender: M Fire Coordinator: : 1960 Requested By: Pradeep Forrest Order Number: [id number] MD: Mike Mcghee Measurements Intervals [place] Rate: 87 P: 8 [place]: 182 QRS: 24 QRSD: 94 T: 36 QT: 374 QTc: 450 Interpretive Statements Sinus rhythm Compared to ECG 04/30/2018 09:26:38 No significant changes Electronically Signed On 04-19-2020 12:44:25 ZINC FURNACE CHARGER by Mike Mcghee [email or web address] <ELECTRONICALLY SIGNED> By: Mike Mcghee MD, [facility] 04/19/20 1244 3 Mike Mcghee MD, [facility] /EPI
[2020-04-19 16:15] VITALS: BP 130/80
[2020-04-19 19:25] VITALS: BP 143/72
[2020-04-20] VITALS: BP 131/60
[2020-04-20 02:05] LABS: GLYCOHEMOGLOBIN (HGB A1C) 5.8 % (4.8-5.6)
[2020-04-20 04:00] VITALS: BP 163/70
[2020-04-20 06:21] LABS: HEMATOCRIT 39.3 % (42.0-52.0); HEMOGLOBIN 12.8 gm/dL (14.0-18.0); MCH 27.2 pg (26.0-34.0); MCHC 32.7 g/dL (28.0-37.0); MCV 83.2 fL (80.0-100.0); MPV 8.4 fl. (7.2-11.1); RBC 4.72 mil/uL (4.50-6.00); RDW-CV 14.6 % (10.5-14.5)
[2020-04-20 06:37] LABS: ALBUMIN 3.2 g/dL (3.4-5.0); CALCIUM 8.8 mg/dL (8.5-10.1); CREATININE 0.9 mg/dL (0.6-1.3); MAGNESIUM 2.3 mg/dL (1.8-2.4); POTASSIUM 4.4 mmol/L (3.5-5.1); TOTAL BILIRUBIN 0.4 mg/dL (<0.1-1.0); TOTAL PROTEIN 7.4 g/dL (6.4-8.2)
--- NOTE | 2020-04-20 15:32 | 2DMMODE ---
[place] [address] 2 D/M-MODE ECHOCARDIOGRAM Name: RAN MURPHY JR Room: [address] IN [facility]#: [id number] Admission: 04/18/20 Attend Phys: Ellen Todd, Discharge: Date of : 58 Date of Service: 04/20/20 1532 Report #: [id number] THIS REPORT FOR: cc: Carlos Hull Ahmad W. DO Blick, David R. MD [facility] ~ APPROVED REPORT Study performed: 04/20/2020 13:36:40 EXAM: Comprehensive 2D, Doppler, and color-flow Echocardiogram Patient Location: In-Patient Room #: [facility] Status: routine BSA: 2.24 HR: 85 bpm BP: 163/70 mmHg Rhythm: NSR Other Information Study Quality: Good Indications Congestive Heart Failure Chest Pain Pleural Effusion 2D Dimensions IVSd: 7.82 (7-11mm) LVOT Diam: 20.59 (18-24mm) LVDd: 47.49 mm PWd: 7.67 (7-11mm) Ascending Ao: 30.55 (22-36mm) LVDs: 25.89 (25-40mm) Aortic Root: 34.10 mm Volumes Left Atrial Volume (Systole) LA ESV Index: 22.00 mL/m2 Aortic Valve AoV Peak Elfego.: 1.46 m/s AO Peak Gr.: 8.53 mmHg LVOT Max P.42 mmHg AO Mean Gr.: 4.96 mmHg LVOT Mean P.01 mmHg LVOT Max V: 1.36 m/s AO V2 VTI: 25.17 cm LVOT Mean V: 0.77 m/[place] [address] 2 D/M-MODE ECHOCARDIOGRAM Name: RAN MURPHY JR Room: [address] IN .R.#: [id number] Admission: 04/18/20 Attend Phys: Ellen Todd, Discharge: Date of : 58 Date of Service: 04/20/20 1532 Report #: [id number] MASON (VTI): 3.79 cm2 LVOT V1 VTI: 28.61 cm Mitral Valve E/A Ratio: 0.85 MV Decel. Time: 273.50 ms MV E Max Elfego.: 1.21 m/s MV PHT: 79.31 ms MVA (PHT): 2.77 cm2 TDI E/Lateral E': 11.00 E/Medial E': 12.10 Medial E' Elfego.: 0.10 m/s Lateral E' Elfego.: 0.11 m/s Pulmonary Valve PV Peak Elfego.: 1.36 m/s PV Peak Gr.: 7.45 mmHg Tricuspid Valve RAP Estimate: 5.00 mmHg TR Peak Gr.: 36.16 mmHg RVSP: 41.00 mmHg PA Pressure: 41.00 mmHg Left Ventricle The left ventricle is normal size. There is normal LV segmental wall motion. There is normal left ventricular wall thickness. Left ventricular systolic function is normal. The left ventricular ejection fraction is within the normal range. LVEF is 65-70%. Grade I - abnormal relaxation pattern. Right Ventricle The right ventricle is normal size. The right ventricular systolic function is normal. Atria The left atrium size is normal. The right atrium size is normal. Aortic Valve The aortic valve is normal in structure. No aortic regurgitation is present. There is no aortic valvular stenosis. Mitral Valve The mitral valve is normal in structure. Trace mitral regurgitation. No evidence of mitral valve stenosis[place] [address] 2 D/M-MODE ECHOCARDIOGRAM Name: RAN MURPHY JR Room: [address] IN [facility]#: [id number] Admission: 04/18/20 Attend Phys: Ellen Todd, Discharge: Date of : 58 Date of Service: 04/20/20 1532 Report #: [id number] The tricuspid valve is normal in structure. Trace tricuspid regurgitation. estimated pa pressure 40 mm Hg. Pulmonic Valve The pulmonary valve is normal in structure. There is no pulmonic valvular regurgitation. Great Vessels The aortic root is normal in size. IVC is normal in size and collapses >50% with inspiration. Pericardium Trace pericardial effusion. Left pleural effusion. <Conclusion> Left ventricular systolic function is normal. The left ventricular ejection fraction is within the normal range. Trace tricuspid regurgitation. estimated pa pressure 40 mm Hg. Left pleural effusion. <ELECTRONICALLY SIGNED> By: Barrington White MD, FACC 04/20/20 1532 153 153 Barrington White MD, FACC /INF
[2020-04-21] VITALS: BP 127/72
[2020-04-21 04:00] VITALS: BP 119/63
[2020-04-21] MEDS ORDERED: LEVOFLOXACIN500 MG PO (08:20)
[2020-04-21 08:44] VITALS: BP 139/77
[2020-04-21 08:50] VITALS: BP 139/77
== END 2020-04-21 11:30 | disposition home or self-care (01) | DRG 193 ==
LOC: M.ERS 09:09 → M.TBA-ER 13:41 → M.ORTHSURG 13:41
PROVIDERS: Emergency Medicine Emergency Medical Services; ADMIT Internal Medicine; ATTEND Internal Medicine
DX: J18.9 Pneumonia, unspecified organism (principal); J96.01 Acute respiratory failure with hypoxia; I10 Essential (primary) hypertension; E66.9 Obesity, unspecified; R73.9 Hyperglycemia, unspecified; Z20.828 Contact with and (suspected) exposure to other viral communicable diseases; Z68.37 Body mass index [BMI] 37.0-37.9, adult; Z90.49 Acquired absence of other specified parts of digestive tract; Z85.46 Personal history of malignant neoplasm of prostate; Z79.899 Other long term (current) drug therapy; Z88.0 Allergy status to penicillin

== ENCOUNTER 2020-09-17 23:20 | Inpatient (IN) | payer BC ==
[~2020-09-17] VITALS: Ht 172.7 cm; Wt 114.3 kg
[~2020-09-17 23:20] MED LIST changes: +LEVOFLOXACIN500 MG PO
[2020-09-17 23:36] VITALS: BP 157/59
[2020-09-18 00:21] LABS: ABSOLUTE BASOPHILS 0.1 thou/uL (0.0-0.2); ABSOLUTE EOSINOPHILS 0.3 thou/uL (0.0-0.7); ABSOLUTE MONOCYTES 0.9 thou/uL (0.0-1.2); ABSOLUTE NEUTROPHILS 4.4 thou/uL (1.6-8.1); BASOPHILS 0.8 %; EOSINOPHILS 4.3 %; HEMATOCRIT 38.4 % (42.0-52.0); HEMOGLOBIN 12.6 gm/dL (14.0-18.0); LYMPHOCYTES 26.2 %; MCH 27.1 pg (26.0-34.0); MCHC 32.8 g/dL (28.0-37.0); MCV 82.7 fL (80.0-100.0); MONOCYTES 11.8 %; MPV 7.2 fl. (7.2-11.1); NUCLEATED RBCS 0 /100WBC; PLATELET COUNT* 332 thou/uL (150-400); POLYS 56.9 %; RBC 4.64 mil/uL (4.50-6.00); RDW-CV 14.4 % (10.5-14.5); WBC 7.7 thou/uL (4.0-11.0)
[2020-09-18 00:26] LABS: URINE BILIRUBIN NEGATIVE (Negative); URINE BLOOD NEGATIVE (Negative); URINE CLARITY CLEAR; URINE COLOR YELLOW; URINE GLUCOSE-RANDOM NEGATIVE (Negative); URINE KETONES NEGATIVE (Negative); URINE LEUKOCYTES-REFLEX NEGATIVE (Negative); URINE NITRITE-REFLEX NEGATIVE (Negative); URINE PROTEIN NEGATIVE (Negative); URINE SPECIFIC GRAVITY >= 1.030 (1.005-1.030)
[2020-09-18 00:32] LABS: CALCIUM 9.1 mg/dL (8.5-10.1); CREATININE 1.2 mg/dL (0.6-1.3); POTASSIUM 4.3 mmol/L (3.5-5.1)
[2020-09-18 00:36] LABS: ALBUMIN 3.5 g/dL (3.4-5.0); TOTAL BILIRUBIN 0.3 mg/dL (<0.1-1.0); TOTAL PROTEIN 7.6 g/dL (6.4-8.2)
[2020-09-18 04:19] VITALS: BP 117/58
[2020-09-18 04:31] VITALS: BP 134/65
[2020-09-18 07:50] VITALS: BP 124/70
[2020-09-18 16:00] VITALS: BP 125/64
[2020-09-18 20:48] VITALS: BP 127/52
[2020-09-19 05:49] LABS: ABSOLUTE BASOPHILS 0.1 thou/uL (0.0-0.2); ABSOLUTE EOSINOPHILS 0.3 thou/uL (0.0-0.7); ABSOLUTE LYMPHOCYTES 1.2 thou/uL (0.8-5.3); ABSOLUTE NEUTROPHILS 4.3 thou/uL (1.6-8.1); BASOPHILS 0.8 %; EOSINOPHILS 3.9 %; HEMATOCRIT 36.8 % (42.0-52.0); HEMOGLOBIN 12.1 gm/dL (14.0-18.0); LYMPHOCYTES 17.7 %; MCHC 32.9 g/dL (28.0-37.0); MCV 82.1 fL (80.0-100.0); MONOCYTES 14.2 %; MPV 7.7 fl. (7.2-11.1); NUCLEATED RBCS 0 /100WBC; PLATELET COUNT* 307 thou/uL (150-400); POLYS 63.4 %; RBC 4.49 mil/uL (4.50-6.00); RDW-CV 14.5 % (10.5-14.5); WBC 6.8 thou/uL (4.0-11.0)
[2020-09-19 05:50] LABS: CALCIUM 9.1 mg/dL (8.5-10.1); CREATININE 0.8 mg/dL (0.6-1.3); POTASSIUM 4.1 mmol/L (3.5-5.1)
[2020-09-19 08:15] VITALS: BP 112/68
[2020-09-19 16:00] VITALS: BP 139/61
[2020-09-19 21:08] VITALS: BP 124/59
[2020-09-20 08:00] VITALS: BP 118/72
[2020-09-20] MEDS ORDERED: NORCO5 PO (08:18)
[2020-09-20] MEDS ORDERED: LEVOFLOXACIN500 MG PO (08:18)
[2020-09-20 12:07] VITALS: BP 118/72
[2020-09-20 14:51] VITALS: BP 118/72
== END 2020-09-20 12:30 | disposition home or self-care (01) | DRG 728 ==
LOC: M.ERS 23:20 → M.TBA-ER 09-18 03:13 → M.ORTHSURG 09-18 03:13
PROVIDERS: Emergency Medicine; ADMIT Internal Medicine; ATTEND Internal Medicine
DX: N45.3 Epididymo-orchitis (principal); N43.3 Hydrocele, unspecified; D64.9 Anemia, unspecified; I10 Essential (primary) hypertension; Z20.822 Contact with and (suspected) exposure to COVID-19; Z90.49 Acquired absence of other specified parts of digestive tract; Z85.6 Personal history of leukemia; Z85.46 Personal history of malignant neoplasm of prostate; Z88.0 Allergy status to penicillin; Z79.899 Other long term (current) drug therapy

== ENCOUNTER 2021-06-14 21:09 | Inpatient (IN) | payer BC ==
[~2021-06-14] VITALS: Ht 172.7 cm; Wt 114.8 kg
[~2021-06-14 21:09] MED LIST changes: +NORCO5 PO
[2021-06-14 21:49] VITALS: BP 158/82
[2021-06-14 22:18] LABS: ABSOLUTE BASOPHILS 0.1 thou/uL (0.0-0.2); ABSOLUTE EOSINOPHILS 0.2 thou/uL (0.0-0.7); ABSOLUTE LYMPHOCYTES 1.5 thou/uL (0.8-5.3); ABSOLUTE MONOCYTES 1.4 thou/uL (0.0-1.2); ABSOLUTE NEUTROPHILS 7.5 thou/uL (1.6-8.1); BASOPHILS 0.6 %; EOSINOPHILS 2.1 %; HEMATOCRIT 40.5 % (42.0-52.0); HEMOGLOBIN 13.1 gm/dL (14.0-18.0); LYMPHOCYTES 14.1 %; MCH 25.5 pg (26.0-34.0); MCHC 32.4 g/dL (28.0-37.0); MCV 78.8 fL (80.0-100.0); MONOCYTES 12.8 %; MPV 7.8 fl. (7.2-11.1); NUCLEATED RBCS 0 /100WBC; PLATELET COUNT* 394 thou/uL (150-400); POLYS 70.4 %; RBC 5.14 mil/uL (4.50-6.00); RDW-CV 15.4 % (10.5-14.5); WBC 10.7 thou/uL (4.0-11.0)
[2021-06-14 22:24] LABS: CALCIUM 8.9 mg/dL (8.5-10.1); POTASSIUM 4.1 mmol/L (3.5-5.1)
[2021-06-14 22:29] LABS: ALBUMIN 3.3 g/dL (3.4-5.0); TOTAL BILIRUBIN 0.6 mg/dL (<0.1-1.0); TOTAL PROTEIN 7.9 g/dL (6.4-8.2)
[2021-06-14 22:33] LABS: BE -5.9 mmol/L (-2 to +3); PCO2 29.9 mmHg (35.0-45.0); pH 7.392 (7.340-7.450)
[2021-06-15 02:16] LABS: INFLUENZA A ANTIGEN Negative (Negative); INFLUENZA B ANTIGEN Negative (Negative)
[2021-06-15 03:29] VITALS: BP 150/85
[2021-06-15 08:00] VITALS: BP 179/92
--- NOTE | 2021-06-15 08:39 | EKG ---
[place] [address] ELECTROCARDIOGRAM REPORT Name: RAN MURPHY JR Room: [place] [address] ADM IN [facility].#: [id number] Admission: 06/14/21 Attend Phys: Ellen Todd, Discharge: Date of : 58 Date of Service: 06/14/212205 Report #: [id number] THIS REPORT FOR: //name// [facility] ED Test Date: 2021-06-14 Test Time: 22:06:23 Pat Name: RAN MURPHY Department: Room: [facility] Gender: M Acetaldehyde Converter Operator: MS : 1960 Requested By: Tyson Colbert Order Number: [id number] MD: Mike Mcghee Measurements Intervals [place] Rate: 102 P: 54 PA: 184 QRS: 20 QRSD: 86 T: 31 QT: 331 QTc: 432 Interpretive Statements Sinus tachycardia Low voltage, precordial leads Baseline wander in lead(s) V1,V2 Compared to ECG 04/18/2020 09:14:04 Low QRS voltage now present Sinus rhythm no longer present Electronically Signed On 06-15-2021 8:39:45 ENGINEER INTERN by Mike Mcghee [email or web address] <ELECTRONICALLY SIGNED> By: Mike Mcghee MD, FACC 06/15/21 0839 05 05 Mike Mcghee MD, FAC /EPI
--- NOTE | 2021-06-15 09:44 | NUR ---
PREVENTIVE MEDICINE SPECIALIST AT BEDSIDE
[2021-06-15 12:00] VITALS: BP 134/83
--- NOTE | 2021-06-15 12:06 | 2DMMODE ---
[place] [address] 2 D/M-MODE ECHOCARDIOGRAM Name: RAN MURPHY JR Room: [address] IN [facility]#: [id number] Admission: 06/14/21 Attend Phys: Ellen Todd, Discharge: Date of : 58 Date of Service: 06/15/21 1205 Report #: [id number] THIS REPORT FOR: cc: Carlos Hull Ahmad W. DO Liston, Michael J. MD [facility] ~ APPROVED REPORT Study performed: 06/15/2021 09:22:47 EXAM: Comprehensive 2D, Doppler, and color-flow Echocardiogram Patient Location: In-Patient Room #: er Status: routine BSA: 2.21 HR: 104 bpm BP: 136/95 mmHg Rhythm: NSR Other Information Study Quality: Good Indications pulmonary edema 2D Dimensions IVSd: 10.75 (7-11mm) LVOT Diam: 22.15 (18-24mm) LVDd: 47.59 mm PWd: 8.72 (7-11mm) Ascending Ao: 29.94 (22-36mm) LVDs: 22.02 (25-40mm) Aortic Root: 33.57 mm Volumes Left Atrial Volume (Systole) LA ESV Index: 18.50 mL/m2 Aortic Valve AoV Peak Elfego.: 1.57 m/s AO Peak Gr.: 9.87 mmHg LVOT Max P.26 mmHg AO Mean Gr.: 5.42 mmHg LVOT Mean P.21 mmHg LVOT Max V: 1.35 m/s AO V2 VTI: 23.96 cm LVOT Mean V: 0.81 m/s MASON (VTI): 3.90 cm2 LVOT V1 VTI: 24.29 [place] [address] 2 D/M-MODE ECHOCARDIOGRAM Name: RAN MURPHY JR Room: [address] IN [facility].#: [id number] Admission: 06/14/21 Attend Phys: Ellen Todd, Discharge: Date of : 58 Date of Service: 06/15/21 1205 Report #: [id number] Mitral Valve E/A Ratio: 0.75 MV Decel. Time: 135.08 ms MV E Max Elfego.: 1.12 m/s MV PHT: 39.17 ms MVA (PHT): 5.62 cm2 TDI E/Lateral E': 9.33 E/Medial E': 11.20 Medial E' Elfego.: 0.10 m/s Lateral E' Elfego.: 0.12 m/s Pulmonary Valve PV Peak Elfego.: 1.00 m/s PV Peak Gr.: 3.97 mmHg Left Ventricle The left ventricle is normal size. There is normal LV segmental wall motion. Mild concentric left ventricular hypertrophy. Left ventricular systolic function is hyperdynamic. LVEF is >70%. Grade I - abnormal relaxation pattern. Right Ventricle Right ventricle is dilated. The right ventricular systolic function is normal. Atria The left atrium size is normal. Right atrium is dilated. Aortic Valve The aortic valve is normal in structure. No aortic regurgitation is present. There is no aortic valvular stenosis. Mitral Valve The mitral valve is normal in structure. There is no mitral valve regurgitation noted. No evidence of mitral valve stenosis. Tricuspid Valve The tricuspid valve is normal in structure. Trace tricuspid regurgitation. Unable to assess PA pressure. Pulmonic Valve The pulmonary valve is normal in structure. Trace pulmonic regurgitation. Great Vessels The aortic root is normal in size. IVC [place] [address] 2 D/M-MODE ECHOCARDIOGRAM Name: RAN MURPHY JR Room: [address] IN [facility]#: [id number] Admission: 06/14/21 Attend Phys: Ellen Todd, Discharge: Date of : 58 Date of Service: 06/15/21 1205 Report #: [id number] collapses >50% with inspiration. Pericardium There is no pericardial effusion. Left pleural effusion. <Conclusion> The left ventricle is normal size. Mild concentric left ventricular hypertrophy. The left ventricle is normal size. Mild concentric left ventricular hypertrophy. Left ventricular systolic function is hyperdynamic. LVEF is >70%. Grade I - abnormal relaxation pattern. Right ventricle is dilated. Right atrium is dilated. Trace tricuspid regurgitation. Unable to assess PA pressure. Trace pulmonic regurgitation. IVC is normal in size and collapses >50% with inspiration. Left pleural effusion. <ELECTRONICALLY SIGNED> By: Mike Mcghee MD, FACC 06/15/211204 04 04 Mike Mcghee MD, FACC /INF
[2021-06-15 16:00] VITALS: BP 119/78
[2021-06-15 20:00] VITALS: BP 159/71
[2021-06-16] VITALS: BP 127/70
[2021-06-16 04:00] VITALS: BP 114/71
[2021-06-16 04:51] LABS: HEMATOCRIT 37.9 % (42.0-52.0); HEMOGLOBIN 12.5 gm/dL (14.0-18.0); MCH 25.7 pg (26.0-34.0); MCHC 32.9 g/dL (28.0-37.0); MCV 78.4 fL (80.0-100.0); MPV 8.3 fl. (7.2-11.1); RBC 4.84 mil/uL (4.50-6.00); RDW-CV 15.3 % (10.5-14.5); WBC 8.7 thou/uL (4.0-11.0)
[2021-06-16 05:23] LABS: ALBUMIN 3.1 g/dL (3.4-5.0); CALCIUM 8.8 mg/dL (8.5-10.1); CREATININE 0.9 mg/dL (0.6-1.3); MAGNESIUM 2.2 mg/dL (1.8-2.4); POTASSIUM 4.2 mmol/L (3.5-5.1); TOTAL BILIRUBIN 0.3 mg/dL (<0.1-1.0); TOTAL PROTEIN 7.4 g/dL (6.4-8.2)
[2021-06-16 09:14] VITALS: BP 1096/59
--- NOTE | 2021-06-16 09:58 | NUR ---
Pt admitted on 06/14/21 for CHF. Called - Romina at: [phone] to complete assessment. Pt lives with in a ranch style home with 1 step to enter. Pt was previously independent in Mobility and ADL's. Of note no hx of HH/SNF/or DME. does report pt has leukemia and takes a chemo pill. Pt fills his prescriptions at [facility] in [place], [place] and just saw his PCP last Monday. CM to continue to follow for discharge planning.
--- NOTE | 2021-06-16 10:20 | NUR ---
REPORT GIVEN TO ICU OVERFLOW. PATIENT WILL LEAVE BRIEFLY. STABLE AT PRESENT. OXYGEN 2 LITERS PER NC. TO ICU VIA ER CART. PATIENT IS STABLE.
--- NOTE | 2021-06-16 10:24 | NUR ---
REPORT GIVEN TO ICU #7 BY WON RANDHAWA. PT TRANSFERRED OVER AND CARE ASSUMED BY SCHEDULER.
[2021-06-16 12:35] LABS: INR 1.1; PROTIME 10.9 Seconds (9.20-11.50)
[2021-06-16 12:36] VITALS: BP 120/70
--- NOTE | 2021-06-16 12:48 | NUR ---
At or around 1040, pt was transferred to the ICU from ED in the presence of nursing staff in a wheelchair. Pt was able to ambulate independently from wheelchair to the bed without difficulty. Head to toe assessment completed, see ADMIT details. No remarkable findings. Pt A&OX4, afebrile, no complaints of pain or SOA at this time. Admission assessments completed. 0900 medications scanned and hung. Pt is on 4L NC, SpO2 is maintaining above 95%, lung sounds are clear/diminished bilat. S1S2 heard, no edema noted, palpable pulses, monitoring tracing SR with a HR maintaining in the 80s-90s. Pt does become tachycardic on ambulation. Pt voids independently into the urinal. Pt voided 575mls upon arrival, bedside commode set up. Pt has a LAC 20G that is patent with abx running. No skin issues other than generalized bruising on his forearms. COVID PCR is negative. Dr. Todd at the bedside. Plan is for a thoracentisis to be performed during this admission. Will continue to monitor. Will continue to monitor.
[2021-06-17] VITALS (8 sets, daily range): BP systolic 100–137; BP diastolic 40–81
[2021-06-17 04:21] LABS: ABSOLUTE EOSINOPHILS 0.1 thou/uL (0.0-0.7); ABSOLUTE LYMPHOCYTES 1.6 thou/uL (0.8-5.3); ABSOLUTE MONOCYTES 1.2 thou/uL (0.0-1.2); ABSOLUTE NEUTROPHILS 6.5 thou/uL (1.6-8.1); BASOPHILS 0.4 %; EOSINOPHILS 1.1 %; HEMATOCRIT 36.8 % (42.0-52.0); LYMPHOCYTES 17.3 %; MCH 25.5 pg (26.0-34.0); MCHC 32.6 g/dL (28.0-37.0); MCV 78.3 fL (80.0-100.0); MONOCYTES 12.3 %; MPV 8.2 fl. (7.2-11.1); NUCLEATED RBCS 0 /100WBC; PLATELET COUNT* 403 thou/uL (150-400); POLYS 68.9 %; RDW-CV 15.2 % (10.5-14.5); WBC 9.4 thou/uL (4.0-11.0)
[2021-06-17 04:25] LABS: CALCIUM 8.9 mg/dL (8.5-10.1); POTASSIUM 4.2 mmol/L (3.5-5.1)
[2021-06-17 12:04] LABS: % SATURATION 11 % (20-39); IRON 32 ug/dL (50-175)
--- NOTE | 2021-06-17 19:26 | NUR ---
At 1730, this RN called report to the tele floor and gave report to EDIS Ibrahim. Pt's belongings packed and sent with the pt. Pt was escorted via wheelchair in the presence of nursing staff in stable condition. The pt alerted his spouse to his transfer. Pt's labs and physical assessment unremarkable. Pt remains in stable condition. Pt's chart and medications sent with the pt.
[2021-06-18] VITALS: BP 111/61
[2021-06-18 04:00] VITALS: BP 112/55
[2021-06-18 04:34] LABS: ABSOLUTE EOSINOPHILS 0.1 thou/uL (0.0-0.7); ABSOLUTE LYMPHOCYTES 1.5 thou/uL (0.8-5.3); ABSOLUTE MONOCYTES 0.8 thou/uL (0.0-1.2); ABSOLUTE NEUTROPHILS 4.4 thou/uL (1.6-8.1); BASOPHILS 0.4 %; EOSINOPHILS 1.9 %; HEMATOCRIT 37.2 % (42.0-52.0); HEMOGLOBIN 12.3 gm/dL (14.0-18.0); LYMPHOCYTES 21.3 %; MCH 25.8 pg (26.0-34.0); MCHC 32.9 g/dL (28.0-37.0); MCV 78.4 fL (80.0-100.0); MONOCYTES 12.4 %; NUCLEATED RBCS 0 /100WBC; PLATELET COUNT* 380 thou/uL (150-400); RBC 4.75 mil/uL (4.50-6.00); RDW-CV 15.1 % (10.5-14.5); WBC 6.8 thou/uL (4.0-11.0)
[2021-06-18 05:13] LABS: CALCIUM 8.7 mg/dL (8.5-10.1); CREATININE 0.9 mg/dL (0.6-1.3); POTASSIUM 3.8 mmol/L (3.5-5.1)
--- NOTE | 2021-06-18 05:22 | NUR ---
SLEPT WELL TONIGHT. AMBULATED AROUND ROOM, DENIES SOA OR FATIGUE. PT WASHED UP TONIGHT AT SINK AND STATES HE FEELS SO MUCH BETTER. ENCOURAGED TO USE IS, ACHIEVES 1999. TELEMETRY ON SHOWING SR. NO COMPLAINTS VOICED.
[2021-06-18 08:00] VITALS: BP 119/70
[2021-06-18] MEDS ORDERED: DECADRON6 MG PO (10:35)
[2021-06-18] MEDS ORDERED: DOXYCYCLINE 10100 MG PO (10:35)
[2021-06-18] MEDS ORDERED: KLOR-CON M2020 MEQ PO (10:35)
[2021-06-18] MEDS ORDERED: LASIX 40 MG TAB40 M2 PO (10:35)
[2021-06-18 11:13] VITALS: BP 119/70
[2021-06-18 12:30] VITALS: BP 119/70
[2021-06-18 14:24] VITALS: BP 119/70
--- NOTE | 2021-06-18 14:52 | NUR ---
DISCHARGE ORDERS RECEIVED. DISCHARGE INSTRUCTIONS, CARE NOTES, E SCRIPTS AND FOLLOW UP APPTS GIVEN TO PT. PT COMMUNICATES UNDERSTANDING OF DISCHARGE TEACHING. IV AND CARDIAC MONTOR REMOVED. PT DISCHARGED WITH ALL BELONGINGS AND PAPERWORK VIA WHEELCHAIR WITH NURSING STAFF TO SPOUSE OWN PERSONAL VEHICLE.
== END 2021-06-18 14:52 | disposition home or self-care (01) | DRG 177 ==
LOC: M.ERS 21:09 → M.TBA-ER 22:54 → M.ICU 06-16 10:24 → M.2W 06-17 18:24
PROVIDERS: Emergency Medicine; Internal Medicine; Physician Assistant; ADMIT Internal Medicine; ATTEND Internal Medicine
PROC: 0W9B3ZZ Drainage of Left Pleural Cavity, Percutaneous Approach (ICD-10-PCS; principal; 2021-06-16)
DX: J15.6 Pneumonia due to other Gram-negative bacteria (principal); J96.01 Acute respiratory failure with hypoxia; I50.9 Heart failure, unspecified; E66.9 Obesity, unspecified; I11.0 Hypertensive heart disease with heart failure; Z20.822 Contact with and (suspected) exposure to COVID-19; Z68.38 Body mass index [BMI] 38.0-38.9, adult; Z88.0 Allergy status to penicillin; Z83.3 Family history of diabetes mellitus; Z82.49 Family history of ischemic heart disease and other diseases of the circulatory system; Z85.46 Personal history of malignant neoplasm of prostate; Z90.49 Acquired absence of other specified parts of digestive tract